=== PATIENT | female | born 2000 | race Caucasian/White ===

== ENCOUNTER 2020-03-29 03:20 | Emergency (ER) | payer MEDICAID ==
--- NOTE | 2020-03-29 03:40 | EDM.PDOC ---
ED HPI GENERAL MEDICAL PROBLEM - General Chief Complaint: Headache Stated Complaint: HEADACHE Time Seen by Provider: 03/29/20 03:40 Source of Information: Reports: Patient, RN, RN Notes Reviewed History Limitations: Reports: No Limitations - History of Present Illness INITIAL COMMENTS - FREE TEXT/NARRATIVE: Patient presents to ER with complaint of headache that began last evening, states it woke her up approximately 1 AM. Patient states the pain wraps from the shoulders up the neck and around the head. States she did try Excedrin and Coca-Cola, which helped minimally. Patient states she has had headaches like this in the past requiring medication. Patient denies any chances of . Onset: Today, Sudden Headache Pain Score (Numeric/FACES): 10 - Related Data Allergies Allergy/AdvReac Type Severity Reaction Status Date / Time cantaloupe Allergy Other Verified 03/29/20 03:29 ed Allergy Other Verified 03/29/20 03:29 Home Meds: Home Meds Albuterol [Proair HFA] 1 puff IH Q4H PRN 03/29/20 [History] Amphetamine/Dextroamphetamine [Adderall] 5 mg PO TID 03/29/20 [History] Aspirin/Acetaminophen/Caffeine [Excedrin Migraine Caplet] 1 each PO ASDIRECTED PRN 03/29/20 [History] Cetirizine [ZyrTEC] 10 mg PO DAILY 03/29/20 [History] Escitalopram Oxalate [Lexapro] 15 mg PO DAILY 03/29/20 [History] Ibuprofen 600 mg PO Q4H PRN 03/29/20 [History] Iron,Carbonyl/Ascorbic Acid [Iron 100-Vitamin C Tablet] 1 each PO DAILY 03/29/20 [History] Levothyroxine 25 mcg PO ACBREAKFAST 03/29/20 [History] Montelukast [Singulair] 10 mg PO DAILY 03/29/20 [History] hydrOXYzine HCL [Hydroxyzine HCl] 25 mg PO Q6H PRN 03/29/20 [History] ED ROS GENERAL - Review of Systems Review Of Systems: Comprehensive ROS is negative, except as noted in HPI. - Physical Exam Exam: See Below Exam Limited By: No Limitations General Appearance: Alert, WD/WN, No Apparent Distress Eye Exam: Bilateral Eye: EOMI, Normal Inspection Ears: Normal External Exam, Hearing Grossly Normal Nose: Normal Inspection Throat/Mouth: Normal Inspection, Normal Voice, No Airway Compromise Head Exam: Atraumatic, Normocephalic Neck: Normal Inspection, Supple, Non-Tender, Full Range of Motion Respiratory/Chest: No Respiratory Distress, Lungs Clear, Normal Breath Sounds, No Accessory Muscle Use, Chest Non-Tender Cardiovascular: Normal Peripheral Pulses, Regular Rate, Rhythm, No Edema, No Gallop, No JVD, No Murmur, No Rub GI/Abdominal: Normal Bowel Sounds, Soft, Non-Tender, No Organomegaly, No Dis tention, No Abnormal Bruit, No Mass (Female) Exam: Deferred Rectal (Female) Exam: Deferred Neuro Exam (Abbreviated): Alert, Oriented, CN II-XII Intact, Normal Cognition, Normal Gait, Normal Reflexes, No Motor/Sensory Deficits Back Exam: Normal Inspection, Full Range of Motion, NT Extremities: Normal Inspection, Normal Range of Motion, Non-Tender, No Pedal Edema, Normal Capillary Refill Psychiatric: Normal Affect, Normal Mood, Anxious Skin Exam: Warm, Dry, Intact, Normal Color, No Rash Course - Vital Signs Last Recorded V/S: Last Vital Signs Temp 97.3 F 03/29/20 03:20 Pulse 121 H 03/29/20 03:20 Resp 18 03/29/20 03:20 BP 110/72 03/29/20 03:20 Pulse Ox 97 03/29/20 03:20 - Orders/Labs/Meds Meds: Medications Discontinued Medications Generic Name Dose Route Start Last Admin Trade Name Freq PRN Reason Stop Dose Admin Ketorolac Tromethamine 30 mg 03/29/20 03:49 03/29/20 04:04 Toradol IM 03/29/20 03:50 30 mg ONETIME ONE Administration Orphenadrine Citrate 60 mg 03/29/20 03:50 03/29/20 04:05 Norflex IM 03/29/20 03:51 60 mg ONETIME ONE Administration Departure - Departure Time of Disposition: 04:20 Disposition: Home, Self-Care 01 Condition: Good Clinical Impression: Tension-type headache - Discharge Information *PRESCRIPTION DRUG MONITORING PROGRAM REVIEWED*: No *COPY OF PRESCRIPTION DRUG MONITORING REPORT IN PATIENT JAE: No Instructions: Tension Headache, Adult, [id number] Referrals: PCP,Unobtain [Primary Care Provider] - Forms: ED Department Discharge Additional Instructions: May use Tylenol and/or ibuprofen as directed for pain Drink plenty of water Rx: Cyclobenzaprine 10 mg 3 times daily as needed muscle spasms Rest in a dark room Follow-up with your primary care provider in the clinic if no improvement Sepsis Event Note (ED) - Evaluation Sepsis Screening Result: No Definite Risk - Focused Exam Vital Signs: Vital Signs Temp Pulse Resp BP Pulse Ox 03/29/20 03:20 97.3 F 121 H 18 110/72 97
[2020-03-29] MEDS ORDERED: Ketorolac 30 MG/ML SDV IM ONE (03:49)
[2020-03-29] MEDS ORDERED: Orphenadrine 60 MG/2 ML Inj IM ONE (03:50)
== END 2020-03-29 04:31 | disposition home or self-care (01) ==
LOC: VM.ED 03:20
DX: G44.209 Tension-type headache, unspecified, not intractable (principal); Z91.018 Allergy to other foods; Z79.82 Long term (current) use of aspirin; Z79.899 Other long term (current) drug therapy
CPT/HCPCS: 96372; 99283; J1885; J2360

== ENCOUNTER 2020-08-25 19:09 | Emergency (ER) | payer OTHER, MEDICAID ==
--- NOTE | 2020-08-25 19:20 | EDM.PDOC ---
ED HPI GENERAL MEDICAL PROBLEM - General Stated Complaint: ER Time Seen by Provider: 08/25/20 19:09 Source of Information: Reports: Patient History Limitations: Reports: No Limitations - History of Present Illness INITIAL COMMENTS - FREE TEXT/NARRATIVE: Pt. states that she fell/twisted her R foot approx. 2 days ago in [place]. Pt. states that she has been experiencing discomfort primarily to the 3rd digit of the R foot since that time, but complains of increased pain with movement of the adjacent toes as well. Denies any high energy trauma. Denies any trauma to the tarsal bones, states that discomfort is isolated to the phalanges. She states that she did have some ecchymosis to the digit, but this is resolving since the accident. Has not attempted icing/antiinflammatories. Denies any ankle trauma. Onset: Today Onset Date: 08/25/20 Location: Reports: Lower Extremity, Right Quality: Reports: Ache Severity: Mild - Related Data Allergies Allergy/AdvReac Type Severity Reaction Status Date / Time cantaloupe Allergy Other Verified 08/25/20 19:32 ed Allergy Other Verified 08/25/20 19:32 Home Meds: Home Meds Albuterol [Proair HFA] 1 puff IH Q4H PRN 03/29/20 [History] Aspirin/Acetaminophen/Caffeine [Excedrin Migraine Caplet] 1 each PO ASDIRECTED PRN 03/29/20 [History] Cetirizine [ZyrTEC] 10 mg PO DAILY 03/29/20 [History] Ibuprofen 600 mg PO Q4H PRN 03/29/20 [History] Iron,Carbonyl/Ascorbic Acid [Iron 100-Vitamin C Tablet] 1 each PO DAILY 03/29/20 [History] Levothyroxine 25 mcg PO ACBREAKFAST 03/29/20 [History] Montelukast [Singulair] 10 mg PO DAILY 03/29/20 [History] hydrOXYzine HCL [Hydroxyzine HCl] 25 mg PO Q6H PRN 03/29/20 [History] DULoxetine [Cymbalta] 60 mg PO DAILY 08/25/20 [History] Pantoprazole [ProTONIX] 40 mg PO DAILY 08/25/20 [History] Past Medical History HEENT History: Reports: Allergic Rhinitis Cardiovascular History: Reports: Other (See Below) Other Cardiovascular History: inappropriate sinus tachycardia Psychiatric History: Reports: ADHD, Anxiety, Depression ED ROS GENERAL - Review of Systems Review Of Systems: Comprehensive ROS is negative, except as noted in HPI. ED EXAM, GENERAL - Physical Exam Exam: See Below General Appearance: Alert, WD/WN, No Apparent Distress Extremities: Other (No obvious deformity to the digits of the R foot. No crepitus noted. Minimal ecchymosis noted to the 3rd digit. No significant edema.) Course - Vital Signs Last Recorded V/S: Last Vital Signs Temp 36.9 C 08/25/20 19:10 Pulse 130 H 08/25/20 19:10 Resp 20 08/25/20 19:10 BP 143/91 H 08/25/20 19:10 Pulse Ox 96 08/25/20 19:10 - Radiology Interpretation Free Text/Narrative:: No fracture or dislocation noted on radiographs. Departure - Departure Time of Disposition: 20:15 Disposition: Home, Self-Care 01 Clinical Impression: Sprain of toe, third, right - Discharge Information Forms: ED Department Discharge Additional Instructions: Home to rest. Ice foot for 10-15 min every hour or so. Ibuprofen 200mg 3 tabs every 6 hours as needed for pain Sepsis Event Note (ED) - Focused Exam Vital Signs: Vital Signs Temp Pulse Resp BP Pulse Ox 08/25/20 19:10 36.9 C 130 H 20 143/91 H 96 - Assessment/Plan Plan: Advised icing the toes/foot. No fracture was appreciated radiographically. Ibuprofen 200mg 3 tabs every 6 hours as needed for discomfort. Recheck in clinic in 10-14 days, sooner if not gradually improving.
--- NOTE | 2020-08-25 19:43 | CR ---
[id number] RAD/RAD Toes Right EXAM: RAD Toes Right INDICATION: FELL 2 DAYS AGO/ PAIN TO THE 3RD TOE COMPARISON: None. DISCUSSION: Mild metatarsus primus varus and hallux valgus. No acute fracture or dislocation is identified. Mild soft tissue swelling in the dorsum of the foot. IMPRESSION: 1. Negative for acute fracture. Jan Burns MD 08/25/[id number] Thank you for allowing us to participate in the care of your patient.
== END 2020-08-25 19:53 | disposition home or self-care (01) ==
LOC: VM.ED 19:09
DX: S93.504A Unspecified sprain of right lesser toe(s), initial encounter (principal); F32.9 Major depressive disorder, single episode, unspecified; Z91.013 Allergy to seafood; Z79.899 Other long term (current) drug therapy; X50.1XXA Overexertion from prolonged static or awkward postures, initial encounter
CPT/HCPCS: 73660-RT; 99283; 99283-25

== ENCOUNTER 2020-09-29 23:05 | Emergency (ER) | payer MEDICAID, OTHER ==
[2020-09-29] MEDS ORDERED: Lactated Ringers 1,000 ML IV ONE (23:34)
[2020-09-29] MEDS ORDERED: Ondansetron 4 MG/2 ML SDV IVPUSH ONE (23:34)
[2020-09-29] MEDS ORDERED: Sodium Chloride 0.9% 10 ML Syringe FLUSH PRN (23:34)
--- NOTE | 2020-09-29 23:40 | EDM.PDOC ---
ED HPI GENERAL MEDICAL PROBLEM - General Chief Complaint: Gastrointestinal Problem Stated Complaint: Vomiting Time Seen by Provider: 09/29/20 23:28 Source of Information: Reports: Patient - History of Present Illness INITIAL COMMENTS - FREE TEXT/NARRATIVE: Meagan is a 20 y/o female who comes to the ER with complaints of nausea and vomiting. She reports that she has not felt all that well this whole week and has been more tired and nauseated on and off all week. She reports having a vomiting episode a week ago and then tonight she started to vomit about 8 pm. She did eat supper without any problems. No fevers. Has been able to take her medications and keep them down. Also has had multiple diarrhea stools this week and today feels more constipated. She did call her PCP in [place] a few days ago, but she has not been seen. "all over" Pain Score (Numeric/FACES): 7 - Related Data Allergies Allergy/AdvReac Type Severity Reaction Status Date / Time cantaloupe Allergy Other Verified 09/29/20 23:35 ed Allergy Other Verified 09/29/20 23:35 Home Meds: Home Meds Albuterol [Proair HFA] 1 puff IH Q4H PRN 03/29/20 [History] Aspirin/Acetaminophen/Caffeine [Excedrin Migraine Caplet] 1 each PO ASDIRECTED PRN 03/29/20 [History] Cetirizine [ZyrTEC] 10 mg PO DAILY 03/29/20 [History] Ibuprofen 600 mg PO Q4H PRN 03/29/20 [History] Iron,Carbonyl/Ascorbic Acid [Iron 100-Vitamin C Tablet] 1 each PO DAILY 03/29/20 [History] Levothyroxine 25 mcg PO ACBREAKFAST 03/29/20 [History] Montelukast [Singulair] 10 mg PO DAILY 03/29/20 [History] hydrOXYzine HCL [Hydroxyzine HCl] 25 mg PO Q6H PRN 03/29/20 [History] DULoxetine [Cymbalta] 60 mg PO DAILY 08/25/20 [History] Pantoprazole [ProTONIX] 40 mg PO DAILY 08/25/20 [History] Ondansetron [Ondansetron ODT] 4 mg PO Q6H PRN #15 tab.rapdis 09/30/20 [Rx] Past Medical History HEENT History: Reports: Allergic Rhinitis Cardiovascular History: Reports: Other (See Below) Other Cardiovascular History: inappropriate sinus tachycardia Respiratory History: Reports: Asthma Psychiatric History: Reports: ADHD, Anxiety, Depression Review of Systems - Review of Systems Review Of Systems: See Below Constitutional: Reports: No Symptoms Eyes: Reports: No Symptoms Ears: Reports: No Symptoms Nose: Reports: No Symptoms Mouth/Throat: Reports: No Symptoms Respiratory: Reports: No Symptoms Cardiovascular: Reports: No Symptoms GI/Abdominal: Reports: Diarrhea, Nausea, Vomiting Genitourinary: Reports: No Symptoms Musculoskeletal: Reports: No Symptoms Skin: Reports: No Symptoms Neurological: Reports: No Symptoms Psychiatric: Reports: No Symptoms ED EXAM, GENERAL - Physical Exam Exam: See Below General Appearance: Alert, WD/WN, No Apparent Distress (Adult female.) Eye Exam: Bilateral Eye: PERRL Ears: Normal External Exam, Normal Canal, Hearing Grossly Normal, Normal TMs Nose: Normal Inspection, Normal Mucosa Throat/Mouth: Normal Inspection, Normal Lips, Normal Teeth, Normal Voice Head: Atraumatic, Normocephalic Neck: Normal Inspection, Supple Respiratory/Chest: No Respiratory Distress, Lungs Clear, Chest Non-Tender Cardiovascular: Normal Peripheral Pulses, Regular Rate, Rhythm, No Murmur GI/Abdominal: Normal Bowel Sounds, Soft, Non-Tender, No Organomegaly (Female) Exam: Deferred Rectal (Female) Exam: Deferred Back Exam: Normal Inspection Extremities: Normal Inspection, Normal Range of Motion, Normal Capillary Refill Neurological: Alert, Oriented, CN II-XII Intact, Normal Cognition, Normal Gait, No Motor/Sensory Deficits Psychiatric: Normal Affect, Normal Mood Skin Exam: Warm, Dry, Intact, Normal Color Lymphatic: No Adenopathy Course - Vital Signs Text/Narrative:: [id number] The patient was seen by the [facility] DEVELOPER. Labs ordered. She was given a ltier of LR and Zofran 4 mg IVP. 0035 Labs reviewed. CBC WBC=16.6, diff neg. CMP, Lipase, Amylase. Reviewed labs with patient. She reports feeling better now. [facility] [employer] DEVELOPER discussed option of obtaining an CT of Abd/Pelvis since WBC is elevated and she has been sick on and off all week or going home with oral Zofran and monitoring sx. Patient chooses to go home with Zofran and see if her sx continue. She was given written instructions and left the ER in stable condition. Last Recorded V/S: Last Vital Signs Temp 36.6 C 09/29/20 23:05 Pulse 100 09/29/20 23:05 Resp 16 09/29/20 23:05 BP 114/80 09/29/20 23:05 Pulse Ox 95 09/29/20 23:05 - Orders/Labs/Meds Orders: Active Orders 24 hr Category Date Time Status CULTURE URINE [RM] Stat Lab 09/29/20 23:45 Received Sodium Chloride 0.9% [Saline Flush] Med 09/29/20 23:34 Active 10 ml FLUSH ASDIRECTED PRN Saline Lock Insert [OM.PC] Stat Oth 09/29/20 23:34 Ordered Medication Orders Sodium Chloride (Saline Flush) 10 ml FLUSH ASDIRECTED PRN PRN Reason: Keep Vein Open Labs: Laboratory Tests 09/29/20 09/29/20 09/29/20 Range/Units 23:45 23:45 23:52 WBC 16.6 H (4.0-10.0) x10^3/uL RBC 5.03 (4.00-5.50) x10^6/uL Hgb 15.4 (12.0-16.0) g/dL Hct 45.2 (33.0-47.0) % MCV 89.9 (78.0-93.0) fL MCH 30.6 (26.0-32.0) pg MCHC 34.1 (32.0-36.0) g/dL RDW Coeff of Arslan 12.4 (10.0-15.0) % Plt Count 278 (130-400) x10^3/uL Neut % (Auto) 79.0 (50.0-80.0) % Lymph % (Auto) 11.6 L (25.0-50.0) % Wake % (Auto) 8.3 (2.0-11.0) % Eos % (Auto) 1.0 (0.0-4.0) % Baso % (Auto) 0.1 L (0.2-1.2) % Sodium (136-145) mmol/L Potassium (3.5-5.1) mmol/L Chloride (98-107) mmol/L Carbon Dioxide (21-32) mmol/L Anion Gap (5-15) mmol/L BUN (7-18) mg/dL Creatinine (0.55-1.02) mg/dL Est Cr Clr Drug Dosing mL/min Estimated GFR (MDRD) Glucose (74-106) mg/dL Calcium (8.5-10.1) mg/dL Corrected Calcium (8.5-10.1) mg/dL Magnesium (1.8-2.4) mg/dL Total Bilirubin (0.2-1.0) mg/dL AST (15-37) U/L ALT (14-59) U/L Alkaline Phosphatase (46-116) U/L C-Reactive Protein (<=0.9) mg/dL Total Protein (6.4-8.2) g/dL Albumin (3.4-5.0) g/dL Globulin Albumin/Globulin Ratio Amylase (25-115) U/L Lipase (73-393) U/L Urine Color Yellow (YELLOW) Urine Appearance Clear (CLEAR) Urine pH 6.0 (5.0-8.0) Ur Specific Holcomb 1.025 Urine Protein Trace H (NEGATIVE) mg/dL Urine Glucose (UA) Negative (NEGATIVE) mg/dL Urine Ketones 40 H (NEGATIVE) mg/dL Urine Occult Blood Negative (NEGATIVE) Urine Nitrite Negative (NEGATIVE) Urine Bilirubin Small H (NEGATIVE) Urine Urobilinogen 1.0 (0.2) EU/dL Ur Leukocyte Esterase Trace H (NEGATIVE) U Hyaline Cast (Auto) Rare Urine RBC 0-5 (NOT SEEN) /HPF Urine WBC 0-5 (NOT SEEN) /HPF Ur Squamous Epith Cells Few H (NEGATIVE) /HPF Ur Renal Epithelial Cell Rare H (NEGATIVE) /HPF Urine Bacteria Rare (NEGATIVE) /HPF Urine Mucus Many H (NEGATIVE) /LPF Urine HCG, Qual Negative (NEGATIVE) 09/29/20 Range/Units 23:52 WBC (4.0-10.0) x10^3/uL RBC (4.00-5.50) x10^6/uL Hgb (12.0-16.0) g/dL Hct (33.0-47.0) % MCV (78.0-93.0) fL MCH (26.0-32.0) pg MCHC (32.0-36.0) g/dL RDW Coeff of Arslan (10.0-15.0) % Plt Count (130-400) x10^3/uL Neut % (Auto) (50.0-80.0) % Lymph % (Auto) (25.0-50.0) % Wake % (Auto) (2.0-11.0) % Eos % (Auto) (0.0-4.0) % Baso % (Auto) (0.2-1.2) % Sodium 142 (136-145) mmol/L Potassium 3.6 (3.5-5.1) mmol/L Chloride 104 (98-107) mmol/L Carbon Dioxide 25 (21-32) mmol/L Anion Gap 16.6 H (5-15) mmol/L BUN 6 L (7-18) mg/dL Creatinine 0.8 (0.55-1.02) mg/dL Est Cr Clr Drug Dosing 105.01 mL/min Estimated GFR (MDRD) > 60 Glucose 105 (74-106) mg/dL Calcium 9.0 (8.5-10.1) mg/dL Corrected Calcium 9.24 (8.5-10.1) mg/dL Magnesium 1.8 (1.8-2.4) mg/dL Total Bilirubin 0.4 (0.2-1.0) mg/dL AST 11 L (15-37) U/L ALT 15 (14-59) U/L Alkaline Phosphatase 112 (46-116) U/L C-Reactive Protein 0.4 (<=0.9) mg/dL Total Protein 7.7 (6.4-8.2) g/dL Albumin 3.7 (3.4-5.0) g/dL Globulin 4.0 Albumin/Globulin Ratio 0.93 Amylase 31 (25-115) U/L Lipase 70 L (73-393) U/L Urine Color (YELLOW) Urine Appearance (CLEAR) Urine pH (5.0-8.0) Ur Specific Holcomb Urine Protein (NEGATIVE) mg/dL Urine Glucose (UA) (NEGATIVE) mg/dL Urine Ketones (NEGATIVE) mg/dL Urine Occult Blood (NEGATIVE) Urine Nitrite (NEGATIVE) Urine Bilirubin (NEGATIVE) Urine Urobilinogen (0.2) EU/dL Ur Leukocyte Esterase (NEGATIVE) U Hyaline Cast (Auto) Urine RBC (NOT SEEN) /HPF Urine WBC (NOT SEEN) /HPF Ur Squamous Epith Cells (NEGATIVE) /HPF Ur Renal Epithelial Cell (NEGATIVE) /HPF Urine Bacteria (NEGATIVE) /HPF Urine Mucus (NEGATIVE) /LPF Urine HCG, Qual (NEGATIVE) Meds: Medications Generic Name Dose Route Start Last Admin Trade Name Edda PRN Reason Stop Dose Admin Sodium Chloride 10 ml 09/29/20 23:34 Saline Flush FLUSH ASDIRECTED PRN Keep Vein Open Discontinued Medications Generic Name Dose Route Start Last Admin Trade Name Edda PRN Reason Stop Dose Admin Lactated Ringer's 1,000 mls @ 999 mls/hr 09/29/20 23:34 09/29/20 23:52 Ringers, Lactated IV 09/30/20 00:34 999 mls/hr ONETIME ONE Administration Ondansetron HCl 4 mg 09/29/20 23:34 09/29/20 23:54 Zofran IVPUSH 09/29/20 23:35 4 mg ONETIME ONE Administration Departure - Departure Time of Disposition: 00:39 Disposition: Home, Self-Care 01 Condition: Good Clinical Impression: Nausea & vomiting Qualifiers: Vomiting type: unspecified Vomiting Intractability: non-intractable Qualified Code(s): R11.2 - Nausea with vomiting, unspecified - Discharge Information Prescriptions: Ondansetron [Ondansetron ODT] 4 mg PO Q6H PRN #15 tab.rapdis PRN Reason: Nausea Instructions: Nausea and Vomiting, Adult Forms: ED Department Discharge Additional Instructions: -Zofran 4mg oral every 4-6 hours as needed for nausea #2 tabs (ER) #15(Rx) -Rest -Stay well hydrated -Drink clear liquids and advance your diet as you tolerate -Return to the clinic to see your PCP if your symptoms persist or follow up back in the ER if symptoms as needed Sepsis Event Note (ED) - Focused Exam Vital Signs: Vital Signs Temp Pulse Resp BP Pulse Ox 09/29/20 23:05 36.6 C 100 16 114/80 95 - My Orders Last 24 Hours: My Active Orders 09/29/20 23:34 Sodium Chloride 0.9% [Saline Flush] 10 ml FLUSH ASDIRECTED PRN Saline Lock Insert [OM.PC] Stat 09/29/20 23:45 CULTURE URINE [RM] Stat - Assessment/Plan Last 24 Hours: My Active Orders 09/29/20 23:34 Sodium Chloride 0.9% [Saline Flush] 10 ml FLUSH ASDIRECTED PRN Saline Lock Insert [OM.PC] Stat 09/29/20 23:45 CULTURE URINE [RM] Stat
[2020-09-30 00:24] LABS: CHLORIDE,CL 104 mmol/L (98-107); SODIUM,NA 142 mmol/L (136-145)
[2020-09-30 00:26] LABS: ANION GAP 16.6 mmol/L (5-15)
[2020-09-30] MEDS ORDERED: Take Home: Ondansetron 4 MG Tab.DIS, 2 Tab Pack PO ONE (00:39)
== END 2020-09-30 00:55 | disposition home or self-care (01) ==
LOC: VM.ED 23:05
DX: R11.2 Nausea with vomiting, unspecified (principal); J45.909 Unspecified asthma, uncomplicated; Z91.018 Allergy to other foods; Z79.899 Other long term (current) drug therapy
CPT/HCPCS: 80053; 81001; 81025; 82150; 83690; 83735; 85025; 86140; 87086; 96374; 99284; 99284-25; A9270-GY; J2405; J7120

== ENCOUNTER 2021-04-02 18:46 | Emergency (ER) | payer MEDICAID ==
--- NOTE | 2021-04-02 19:33 | EDM.PDOC ---
ED HPI GENERAL MEDICAL PROBLEM - General Chief Complaint: Headache Stated Complaint: HIT HEAD A WEEK AGO AND DOESN'T FEEL WELL STILL Time Seen by Provider: 04/02/21 19:15 Source of Information: Reports: Patient, Family History Limitations: Reports: No Limitations - History of Present Illness INITIAL COMMENTS - FREE TEXT/NARRATIVE: Patient presents with head fullness since yesterday, cough and feeling fatigued. She states that she hit her head on a wood beam in the frontal part of her head about a week ago. No headaches, no wound. Not on a blood thinner. had a headache yesterday but today awoke with head fullness. Cough for a few days. Told her mom about the injury and they presented with concern for intracranial problems . States she has a history of thyroid problems, on medication and extensive history of tachycardia without cause, on medication for it. Had her covid vaccine but only been about 3 weeks since last vaccination Associated Symptoms: Reports: Headaches, Malaise. Denies: Seizure Left Headache Pain Score (Numeric/FACES): 1 - Related Data Allergies Allergy/AdvReac Type Severity Reaction Status Date / Time cantaloupe Allergy Other Verified 04/02/21 19:21 ed Allergy Other Verified 04/02/21 19:21 Home Meds: Home Meds Albuterol [Proair HFA] 1 puff IH Q4H PRN 03/29/20 [History] Aspirin/Acetaminophen/Caffeine [Excedrin Migraine Caplet] 1 each PO ASDIRECTED PRN 03/29/20 [History] Cetirizine [ZyrTEC] 10 mg PO DAILY 03/29/20 [History] Ibuprofen 600 mg PO Q4H PRN 03/29/20 [History] Iron,Carbonyl/Ascorbic Acid [Iron 100-Vitamin C Tablet] 1 each PO DAILY 03/29/20 [History] Levothyroxine 25 mcg PO ACBREAKFAST 03/29/20 [History] Montelukast [Singulair] 10 mg PO DAILY 03/29/20 [History] hydrOXYzine HCL [Hydroxyzine HCl] 25 mg PO Q6H PRN 03/29/20 [History] DULoxetine [Cymbalta] 60 mg PO DAILY 08/25/20 [History] Pantoprazole [ProTONIX] 40 mg PO DAILY 08/25/20 [History] Ondansetron [Ondansetron ODT] 4 mg PO Q6H PRN #15 tab.sophie 09/30/20 [Rx] Past Medical History HEENT History: Reports: Allergic Rhinitis Cardiovascular History: Reports: Other (See Below) Other Cardiovascular History: inappropriate sinus tachycardia Respiratory History: Reports: Asthma Musculoskeletal History: Reports: Fibromyalgia Psychiatric History: Reports: ADHD, Anxiety, Depression Endocrine/Metabolic History: Reports: Hypothyroidism Social & Family History - Tobacco Use Tobacco Use Status *Q: Never Tobacco User - Alcohol Use Alcohol Use History: No - Recreational Drug Use Recreational Drug Use: No Drug Use in Last 12 Months: No ED ROS GENERAL - Review of Systems Review Of Systems: See Below Constitutional: Reports: Malaise, Weakness, Fatigue. Denies: Night Sweats, Diaphoresis HEENT: Reports: Other (sinus congestion) Respiratory: Reports: Cough. Denies: Shortness of Breath Cardiovascular: Denies: Chest Pain, Dyspnea on Exertion Endocrine: Reports: No Symptoms GI/Abdominal: Reports: No Symptoms. Denies: Diarrhea, Nausea, Vomiting : Reports: No Symptoms Musculoskeletal: Reports: No Symptoms Skin: Reports: No Symptoms Neurological: Reports: Headache - Physical Exam Exam: See Below Exam Limited By: No Limitations General Appearance: Alert, WD/WN, No Apparent Distress Eye Exam: Bilateral Eye: EOMI, Normal Inspection, Nystagmus, PERRL Ears: Normal External Exam, Normal Canal, Normal TMs Nose: Normal Inspection, Normal Mucosa, No Blood. No: Nasal Swelling Throat/Mouth: Normal Inspection, Normal Lips, Normal Teeth, Normal Voice Head Exam: Atraumatic, Normocephalic Neck: Normal Inspection, Supple, Non-Tender Respiratory/Chest: No Respiratory Distress, Lungs Clear, Normal Breath Sounds, No Accessory Muscle Use, Chest Non-Tender Cardiovascular: No Edema, No Murmur, No Rub, Tachycardia GI/Abdominal: Normal Bowel Sounds, Soft Neuro Exam (Abbreviated): Alert, Oriented, CN II-XII Intact, Normal Cognition, Normal Gait (normal finger to nose with eyes closed, negative rhomberg and pronator drift, normal strength in the upper and lower extermities, normal toe and heel walking), No Motor/Sensory Deficits Extremities: Normal Inspection, Normal Range of Motion, Non-Tender, No Pedal Edema, Normal Capillary Refill Psychiatric: Normal Affect, Normal Mood Skin Exam: Warm, Dry, Intact Course - Vital Signs Last Recorded V/S: Last Vital Signs Temp 36.9 C 04/02/21 18:50 Pulse 112 H 04/02/21 18:50 Resp 16 04/02/21 18:50 BP 119/71 04/02/21 18:50 Pulse Ox 96 04/02/21 18:50 - Orders/Labs/Meds Labs: Laboratory Tests 04/02/21 Range/Units 19:40 SARS CoV-2 RNA Rapid CORY Negative (NEGATIVE) - Radiology Interpretation Free Text/Narrative:: head ct is normal, no acute.. interpreted by radiology - Re-Assessments/Exams Free Text/Narrative Re-Assessment/Exam: 04/02/21 19:46 will check a rapid covid due to general illness and pandemic. head ct due to parental concern. normal neuro exam with exception of nystagmus. one week out of head injury. patient has well established tachycardia and under cardiology care for this. 04/02/21 20:16 advised probable viral illness, conservative care, follow up with PCP Departure - Departure Time of Disposition: 20:16 Disposition: Home, Self-Care 01 Clinical Impression: Head congestion, Head injury - Discharge Information *PRESCRIPTION DRUG MONITORING PROGRAM REVIEWED*: Not Applicable *COPY OF PRESCRIPTION DRUG MONITORING REPORT IN PATIENT JAE: Not Applicable Instructions: Head Injury, Adult, [id number], Sinus Headache, [id number] Forms: ED Department Discharge Additional Instructions: consider using a decongestant such as Coricidin to help with the congestion without causing heart rate or blood pressure issues. You can over an over the counter nasal spray like flonase or nasocort to help with congestion. If you continue to be ill, stay home. Follow up with your provider later in the week if not improving. Process is likely viral and can have cough/cold symptoms for up to 7-10 days. Wear a mask . Head CT was negative as was your covid 19 test Sepsis Event Note (ED) - Evaluation Sepsis Screening Result: No Definite Risk - Focused Exam Vital Signs: Vital Signs Temp Pulse Resp BP Pulse Ox 04/02/21 18:50 36.9 C 112 H 16 119/71 96
--- NOTE | 2021-04-02 20:01 | CT ---
[id number] CT/CT Head WO IV EXAM: CT Head WO IV CLINICAL DATA: HEAD TRAUMA COMPARISON STUDY: None FINDINGS: No intracranial hemorrhage, extra-axial fluid collection, mass, or acute ischemia. No hydrocephalus. Calvarium intact. Paranasal sinuses and mastoid air cells are clear. IMPRESSION: Normal examination of the brain. Josué Hong MD 04/02/211999 Thank you for allowing us to participate in the care of your patient.
[2021-04-02] MEDS ORDERED: Proparacaine 0.5% Ophth Soln 15 ML Bottle EYELF PRN (20:31)
[2021-04-02] MEDS ORDERED: Fluorescein 1 MG Ophth Strip EYELF ONE (20:31)
== END 2021-04-02 20:20 | disposition home or self-care (01) ==
LOC: VM.ED 18:46
DX: S09.90XA Unspecified injury of head, initial encounter (principal); J34.89 Other specified disorders of nose and nasal sinuses; E03.9 Hypothyroidism, unspecified; Z79.899 Other long term (current) drug therapy; Z91.018 Allergy to other foods; Z79.82 Long term (current) use of aspirin; Z20.822 Contact with and (suspected) exposure to COVID-19; W22.8XXA Striking against or struck by other objects, initial encounter
CPT/HCPCS: 70450; 99284; 99284-25; U0002

== ENCOUNTER 2021-04-22 11:38 | Emergency (ER) | payer MEDICAID ==
--- NOTE | 2021-04-22 12:48 | EDM.PDOC ---
ED HPI GENERAL MEDICAL PROBLEM - General Chief Complaint: General Stated Complaint: RIB PAIN Time Seen by Provider: 04/22/21 12:35 - History of Present Illness INITIAL COMMENTS - FREE TEXT/NARRATIVE: Patient comes to the emergency department today with complaints of left rib pain. This patient for the past 3 to 4 days has had intermittent sharp shooting stabbing left rib pain as well as mid sternal pain that gets worse with deep breath cough movement or palpation. She has had no recent falls trauma or injury. She does have a history of chronic pain syndrome. She has seen the chiropractor the last couple of days and he told her that she has a rib "out of place". She had some adjustment there but her pain did not improve. She took 1 dose of ibuprofen yesterday with no improvement. She has been taking her other medications normally. It is difficult to complete the rest of her review of systems as no matter what question I asked her she answers as a positive. She has shortness of breath cough congestion fever chills headache weakness dizziness lightheadedness neck pain abdominal pain nausea vomiting pelvic pain left arm pain right arm pain left leg pain right leg pain. Her right ear tingles when she is laying on her left side. Her right knee is achy when the wind blows. I believe there is some aspects of histrionic somatization with her review of systems. It is somewhat difficult to evaluate. She also has a history of an hydrocyst chronic pain syndrome major depressive disorder attention deficit hyperactivity disorder anxiety. Left Lower Thoracic Pain Score (Numeric/FACES): 8 - Related Data Allergies Allergy/AdvReac Type Severity Reaction Status Date / Time cantaloupe Allergy Other Verified 04/22/21 11:54 ed Allergy Other Verified 04/22/21 11:54 Home Meds: Home Meds Albuterol [Proair HFA] 1 puff IH Q4H PRN 03/29/20 [History] Aspirin/Acetaminophen/Caffeine [Excedrin Migraine Caplet] 1 each PO ASDIRECTED PRN 03/29/20 [History] Cetirizine [ZyrTEC] 10 mg PO DAILY 03/29/20 [History] Ibuprofen 600 mg PO Q4H PRN 03/29/20 [History] Iron,Carbonyl/Ascorbic Acid [Iron 100-Vitamin C Tablet] 1 each PO DAILY 03/29/20 [History] Levothyroxine 25 mcg PO ACBREAKFAST 03/29/20 [History] Montelukast [Singulair] 10 mg PO DAILY 03/29/20 [History] hydrOXYzine HCL [Hydroxyzine HCl] 25 mg PO Q6H PRN 03/29/20 [History] DULoxetine [Cymbalta] 60 mg PO DAILY 08/25/20 [History] Pantoprazole [ProTONIX] 40 mg PO DAILY 08/25/20 [History] Ondansetron [Ondansetron ODT] 4 mg PO Q6H PRN #15 tab.rapdis 09/30/20 [Rx] Cyclobenzaprine [Flexeril] 10 mg PO TID PRN #12 tab 04/22/21 [Rx] Past Medical History HEENT History: Reports: Allergic Rhinitis Cardiovascular History: Reports: Other (See Below) Other Cardiovascular History: inappropriate sinus tachycardia Respiratory History: Reports: Asthma Musculoskeletal History: Reports: Fibromyalgia Psychiatric History: Reports: ADHD, Anxiety, Depression Endocrine/Metabolic History: Reports: Hypothyroidism Social & Family History - Tobacco Use Tobacco Use Status *Q: Never Tobacco User ED ROS GENERAL - Review of Systems Review Of Systems: Comprehensive ROS is negative, except as noted in HPI. ED EXAM, GENERAL - Physical Exam Exam: See Below Free Text/Narrative:: It is somewhat difficult to evaluate this patient by physical exam because no matter where I touch her with even the slightest palpation on the skin she complains of severe pain. I can even elicit severe tenderness on her back when I am not touching her back. The patient is clearly in no distress. Not ill or toxic appearing laughing joking with her mother and playing on her phone. Exam Limited By: No Limitations General Appearance: Alert, WD/WN, No Apparent Distress Eye Exam: Bilateral Eye: EOMI Ears: Normal External Exam Nose: Normal Inspection, Nasal Swelling Throat/Mouth: Normal Inspection, Normal Lips Head: Atraumatic, Normocephalic Neck: Normal Inspection, Supple, Non-Tender, Full Range of Motion Respiratory/Chest: No Respiratory Distress, Lungs Clear, Normal Breath Sounds, No Accessory Muscle Use, Other (Again at her sites of complaint on the left lower costal margin in the mid sternum she has severe pain with even the lightest touch. There is no sign of rash lesions sores bruising swelling ecchymosis. No overt bony deformity or crepitus.) Cardiovascular: Normal Peripheral Pulses, Regular Rate, Rhythm Peripheral Pulses: 2+: Radial (L), Radial (R), Posterior Tibial (L), Posterior Tibial (R), Dorsalis Pedis (L), Dorsalis Pedis (R) GI/Abdominal: Normal Bowel Sounds, Soft, No Distention (Female) Exam: Deferred Rectal (Female) Exam: Deferred Back Exam: Normal Inspection, Full Range of Motion Extremities: Normal Inspection, Normal Range of Motion, No Pedal Edema, Normal Capillary Refill Neurological: Alert, Oriented, Normal Cognition, Normal Gait, No Motor/Sensory Deficits Psychiatric: Normal Affect, Normal Mood Skin Exam: Warm, Dry, Intact, Normal Color, No Rash Course - Vital Signs Last Recorded V/S: Last Vital Signs Temp 97.7 F 04/22/21 11:44 Pulse 107 H 04/22/21 11:44 Resp 18 04/22/21 11:44 BP 139/72 04/22/21 11:44 Pulse Ox 96 04/22/21 11:44 - Orders/Labs/Meds Meds: Medications Discontinued Medications Generic Name Dose Route Start Last Admin Trade Name Edda PRN Reason Stop Dose Admin Cyclobenzaprine HCl 1 packet 04/22/21 12:45 04/22/21 13:00 Take Home: Cyclobenzaprine 10 Mg Tab, 4 Tab Pack PO 04/22/21 12:46 1 packet ONETIME ONE Administration Ketorolac Tromethamine 30 mg 04/22/21 12:44 04/22/21 12:58 Ketorolac 30 Mg/Ml Sdv IM 04/22/21 12:45 30 mg ONETIME ONE Administration Orphenadrine Citrate 60 mg 04/22/21 12:44 04/22/21 12:56 Orphenadrine 60 Mg/2 Ml Inj IM 04/22/21 12:45 60 mg NOW STA Administration - Re-Assessments/Exams Free Text/Narrative Re-Assessment/Exam: 04/22/21 16:17 It is somewhat difficult to evaluate this patient as she has a positive review of systems and she has pretty much a positive physical exam although I wonder how much of this has histrionic psychosomatization overlay on it. I do not find any acute urgent or emergent concerns at this time. She does have a history of chronic pain syndrome. I do not feel that there is any need for diagnostic criteria such as x-rays as she has had no recent falls trauma or injury and there is no signs of trauma. She is quite histrionic. We will treat her with some Flexeril to see if this helps at that time. She needs to follow-up with her primary care for chronic conditions. Discharge directions as below are explained to the patient she was comfortable with this plan and her questions are answered. Departure - Departure Time of Disposition: 12:46 Disposition: Home, Self-Care 01 Clinical Impression: Chronic pain syndrome, Musculoskeletal chest pain - Discharge Information Prescriptions: Cyclobenzaprine [Flexeril] 10 mg PO TID PRN #12 tab PRN Reason: Pain Instructions: Chest Wall Pain, [id number] Referrals: PCP,None [Primary Care Provider] - Forms: ED Department Discharge Additional Instructions: Continue with Tylenol and or Ibuprofen as needed for pain. Heat or ice to the area which ever works best for you. Flexeril 1 tablet three times a day as needed for pain. Caution sedation. Take home pack given to the patient and RX sent to [facility] in [place]. Return to the ED if new or worsening symptoms. Follow up with PCP in the next week for recheck. Sepsis Event Note (ED) - Focused Exam Vital Signs: Vital Signs Temp Pulse Resp BP Pulse Ox 04/22/21 11:44 97.7 F 107 H 18 139/72 96
[2021-04-22] MEDS: Orphenadrine 60 MG/2 ML Inj IM STA (12:56)
[2021-04-22] MEDS: Ketorolac 30 MG/ML SDV IM ONE (12:58)
[2021-04-22] MEDS: Take Home: Cyclobenzaprine 10 MG Tab, 4 Tab Pack PO ONE (13:00)
== END 2021-04-22 13:15 | disposition home or self-care (01) ==
LOC: VM.ED 11:38
DX: G89.4 Chronic pain syndrome (principal); R07.89 Other chest pain; J45.909 Unspecified asthma, uncomplicated; E03.9 Hypothyroidism, unspecified; Z91.018 Allergy to other foods; Z79.82 Long term (current) use of aspirin; Z79.899 Other long term (current) drug therapy
CPT/HCPCS: 96372; 99283; A9270-GY; J1885; J2360

== ENCOUNTER 2021-08-07 21:41 | Emergency (ER) | payer MEDICAID ==
[2021-08-07] MEDS ORDERED: Ondansetron 4 MG/2 ML SDV IVPUSH ONE (21:55)
[2021-08-07] MEDS ORDERED: Ketorolac 30 MG/ML SDV IVPUSH ONE (21:55)
--- NOTE | 2021-08-07 22:01 | EDM.PDOC ---
ED HPI GENERAL MEDICAL PROBLEM - General Chief Complaint: Abdominal Pain Stated Complaint: SEVERE LEFT ABDOMINAL PAIN Time Seen by Provider: 08/07/21 21:50 Source of Information: Reports: Patient, Family History Limitations: Reports: No Limitations - History of Present Illness INITIAL COMMENTS - FREE TEXT/NARRATIVE: Patient states she got up about 7:00 tonight at about 8:00 started having a sharp stabbing pain in her left lower pelvic area with radiation up into the left epigastric area. That she describes as about a 10 out of 10 and constant. She denies any pain like this in the past. She had a vaginal ultrasound last and has an upcoming referral appointment to [facility] secondary to abnormal vaginal bleeding with her periods. Patient states her last menstrual period was 28 July and was heavy. Patient denies any sexual activity no vaginal bleeding or discharge. She states she has been eating and drinking fine with no issues and felt fine this morning when she went to bed. She has no other complaints at this time She did have a bowel movement this morning denies any dysuria or anorexia Onset: Sudden Duration: Hour(s): Quality: Reports: Stabbing, Throbbing Severity: Severe Improves with: Reports: None Worsens with: Reports: None Associated Symptoms: Reports: No Other Symptoms. Denies: Headaches, Loss of Appetite, Nausea/Vomiting, Shortness of Breath Uterine Pain Score (Numeric/FACES): 9 - Related Data Allergies Allergy/AdvReac Type Severity Reaction Status Date / Time cantaloupe Allergy Other Verified 04/22/21 11:54 ed Allergy Other Verified 04/22/21 11:54 Home Meds: Home Meds Albuterol [Proair HFA] 1 puff IH Q4H PRN 03/29/20 [History] Aspirin/Acetaminophen/Caffeine [Excedrin Migraine Caplet] 1 each PO ASDIRECTED PRN 03/29/20 [History] Cetirizine [ZyrTEC] 10 mg PO DAILY 03/29/20 [History] Ibuprofen 600 mg PO Q4H PRN 03/29/20 [History] Iron,Carbonyl/Ascorbic Acid [Iron 100-Vitamin C Tablet] 1 each PO DAILY 03/29/20 [History] Levothyroxine 25 mcg PO ACBREAKFAST 03/29/20 [History] Montelukast [Singulair] 10 mg PO DAILY 03/29/20 [History] hydrOXYzine HCL [Hydroxyzine HCl] 25 mg PO Q6H PRN 03/29/20 [History] DULoxetine [Cymbalta] 60 mg PO DAILY 08/25/20 [History] Pantoprazole [ProTONIX] 40 mg PO DAILY 08/25/20 [History] Ondansetron [Ondansetron ODT] 4 mg PO Q6H PRN #15 tab.rapdis 09/30/20 [Rx] Cyclobenzaprine [Flexeril] 10 mg PO TID PRN #12 tab 04/22/21 [Rx] Past Medical History HEENT History: Reports: Allergic Rhinitis Cardiovascular History: Reports: Other (See Below) Other Cardiovascular History: inappropriate sinus tachycardia Respiratory History: Reports: Asthma Musculoskeletal History: Reports: Fibromyalgia Psychiatric History: Reports: ADHD, Anxiety, Depression Endocrine/Metabolic History: Reports: Hypothyroidism ED ROS GENERAL - Review of Systems Review Of Systems: See Below Constitutional: Reports: No Symptoms. Denies: Fever, Chills, Malaise, Weakness HEENT: Reports: No Symptoms Respiratory: Reports: No Symptoms Cardiovascular: Reports: No Symptoms Endocrine: Reports: No Symptoms GI/Abdominal: Reports: Abdominal Pain. Denies: Anorexia, Constipation, Decreased Appetite, Distension, Nausea, Vomiting : Reports: No Symptoms, Irregular Menses. Denies: Discharge, Dysuria, Flank Pain, Frequency, Pain, Urgency Musculoskeletal: Reports: No Symptoms Skin: Reports: No Symptoms Neurological: Reports: No Symptoms Psychiatric: Reports: No Symptoms Hematologic/Lymphatic: Reports: No Symptoms Immunologic: Reports: No Symptoms ED EXAM, GI/ABD - Physical Exam Exam: See Below Exam Limited By: No Limitations General Appearance: Alert, WD/WN, No Apparent Distress, Other (Intermittent mild discomfort noted) Eyes: Bilateral: Normal Appearance Ears: Normal External Exam, Normal Canal, Hearing Grossly Normal, Normal TMs Nose: Normal Inspection, Normal Mucosa, No Blood Throat/Mouth: Normal Inspection, Normal Lips, Normal Teeth, Normal Gums, Normal Oropharynx, Normal Voice, No Airway Compromise Head: Atraumatic, Normocephalic Neck: Normal Inspection, Supple, Non-Tender, Full Range of Motion Respiratory/Chest: No Respiratory Distress, Lungs Clear, Normal Breath Sounds, No Accessory Muscle Use, Chest Non-Tender Cardiovascular: Normal Peripheral Pulses, Regular Rate, Rhythm, No Edema, No Gallop, No JVD, No Murmur, No Rub GI/Abdominal Exam: Normal Bowel Sounds, Soft, No Organomegaly, No Distention, No Abnormal Bruit. No: Non-Tender, Guarding, Rigid, Rebound, Tender (Mild tenderness to palpation left lower quadrant negative McBurney's negative Delcid's negative iliopsoas negative obturator negative pelvic rock negative heel slap no peritoneal signs) Back Exam: Normal Inspection, Full Range of Motion Extremities: Normal Inspection, Normal Range of Motion, Non-Tender, No Pedal Edema, Normal Capillary Refill Neurological: Alert, Oriented, CN II-XII Intact, Normal Cognition, No Motor/Sensory Deficits Psychiatric: Normal Affect Skin Exam: Warm, Dry, Intact, Normal Color, No Rash Lymphatic: No Adenopathy Course - Vital Signs Text/Narrative:: CBC BMP CRP UA urine Toradol 30 mg IV with 4 Zofran Patient was rechecked multiple times states that each time the pain level had gotten better she was a 8 and at time of disposition she was a 6 and states that she has no more abdominal pain this is her chronic daily pain that she functions with from her fibromyalgia. She is okay with disposition course of treatment and follow-up with her primary care provider in the next 24 hours Noted lysed blood trace leukocytes Secondary to lab work being within normal limit except for some hyperglycemia CBC is within normal limits BUN and creatinine was within normal limits CRP within normal limits and negative hCG I do not believe that she needs CT scan at this time patient and the mother also agree they are okay with follow-up as outpatient Last Recorded V/S: Last Vital Signs Temp 36.3 C 08/07/21 22:32 Pulse 121 H 08/07/21 22:32 Resp 18 08/07/21 22:32 BP 126/85 08/07/21 22:32 Pulse Ox 98 08/07/21 22:32 - Orders/Labs/Meds Labs: Laboratory Tests 08/07/21 08/07/21 08/07/21 Range/Units 22:01 22:01 23:00 WBC 10.2 H (4.0-10.0) x10^3/uL RBC 4.53 (4.00-5.50) x10^6/uL Hgb 14.1 (12.0-16.0) g/dL Hct 40.4 (33.0-47.0) % MCV 89.2 (78.0-93.0) fL MCH 31.1 (26.0-32.0) pg MCHC 34.9 (32.0-36.0) g/dL RDW Coeff of Arslan 11.9 (10.0-15.0) % Plt Count 290 (130-400) x10^3/uL Immature Gran % (Auto) 0.20 (0.00-0.43) % Neut % (Auto) 52.4 (50.0-80.0) % Lymph % (Auto) 34.8 (25.0-50.0) % [place] % (Auto) 5.9 (2.0-11.0) % Eos % (Auto) 6.2 H (0.0-4.0) % Baso % (Auto) 0.5 (0.2-1.2) % Neut # (Auto) 5.4 (1.8-7.7) x10^3/uL Lymph # (Auto) 3.6 (1.0-4.8) x10^3/uL [place] # (Auto) 0.6 (0.0-0.8) x10^3/uL Eos # (Auto) 0.6 H (0.0-0.5) x10^3/uL Baso # (Auto) 0.1 (0.0-0.2) x10^3/uL Immature Gran # (Auto) 0.02 (0.00-0.07) x10^3/uL Sodium 142 (136-145) mmol/L Potassium 3.5 (3.5-5.1) mmol/L Chloride 106 (98-107) mmol/L Carbon Dioxide 21 (21-32) mmol/L Anion Gap 18.5 H (5-15) mmol/L BUN 6 L (7-18) mg/dL Creatinine 0.9 (0.55-1.02) mg/dL Est Cr Clr Drug Dosing TNP Estimated GFR (MDRD) > 60 Glucose 148 H (70-99) mg/dL Calcium 9.0 (8.5-10.1) mg/dL C-Reactive Protein < 0.2 (<=0.9) mg/dL Urine Color Yellow (YELLOW) Urine Appearance Slightly cloudy H (CLEAR) Urine pH 5.5 (5.0-8.0) Ur Specific [place] 1.025 Urine Protein Negative (NEGATIVE) mg/dL Urine Glucose (UA) Negative (NEGATIVE) mg/dL Urine Ketones 40 H (NEGATIVE) mg/dL Urine Occult Blood Trace-lysed H (NEGATIVE) Urine Nitrite Negative (NEGATIVE) Urine Bilirubin Negative (NEGATIVE) Urine Urobilinogen 0.2 (0.2) EU/dL Ur Leukocyte Esterase Small H (NEGATIVE) U Hyaline Cast (Auto) Rare Urine RBC 0-5 (NOT SEEN) /HPF Urine WBC 5-10 H (NOT SEEN) /HPF Ur Squamous Epith Cells Many H (NOT SEEN) /HPF Urine Bacteria Few H (NOT SEEN) /HPF Urine Mucus Rare H (NOT SEEN) /LPF Ur Yeast w Hyphae Few (NONE - FEW) /HPF Urine HCG, Qual (NEGATIVE) 08/07/21 Range/Units 23:00 WBC (4.0-10.0) x10^3/uL RBC (4.00-5.50) x10^6/uL Hgb (12.0-16.0) g/dL Hct (33.0-47.0) % MCV (78.0-93.0) fL MCH (26.0-32.0) pg MCHC (32.0-36.0) g/dL RDW Coeff of Arslan (10.0-15.0) % Plt Count (130-400) x10^3/uL Immature Gran % (Auto) (0.00-0.43) % Neut % (Auto) (50.0-80.0) % Lymph % (Auto) (25.0-50.0) % [place] % (Auto) (2.0-11.0) % Eos % (Auto) (0.0-4.0) % Baso % (Auto) (0.2-1.2) % Neut # (Auto) (1.8-7.7) x10^3/uL Lymph # (Auto) (1.0-4.8) x10^3/uL [place] # (Auto) (0.0-0.8) x10^3/uL Eos # (Auto) (0.0-0.5) x10^3/uL Baso # (Auto) (0.0-0.2) x10^3/uL Immature Gran # (Auto) (0.00-0.07) x10^3/uL Sodium (136-145) mmol/L Potassium (3.5-5.1) mmol/L Chloride (98-107) mmol/L Carbon Dioxide (21-32) mmol/L Anion Gap (5-15) mmol/L BUN (7-18) mg/dL Creatinine (0.55-1.02) mg/dL Est Cr Clr Drug Dosing Estimated GFR (MDRD) Glucose (70-99) mg/dL Calcium (8.5-10.1) mg/dL C-Reactive Protein (<=0.9) mg/dL Urine Color (YELLOW) Urine Appearance (CLEAR) Urine pH (5.0-8.0) Ur Specific [place] Urine Protein (NEGATIVE) mg/dL Urine Glucose (UA) (NEGATIVE) mg/dL Urine Ketones (NEGATIVE) mg/dL Urine Occult Blood (NEGATIVE) Urine Nitrite (NEGATIVE) Urine Bilirubin (NEGATIVE) Urine Urobilinogen (0.2) EU/dL Ur Leukocyte Esterase (NEGATIVE) U Hyaline Cast (Auto) Urine RBC (NOT SEEN) /HPF Urine WBC (NOT SEEN) /HPF Ur Squamous Epith Cells (NOT SEEN) /HPF Urine Bacteria (NOT SEEN) /HPF Urine Mucus (NOT SEEN) /LPF Ur Yeast w Hyphae (NONE - FEW) /HPF Urine HCG, Qual Negative (NEGATIVE) Meds: Medications Discontinued Medications Generic Name Dose Route Start Last Admin Trade Name Freq PRN Reason Stop Dose Admin Ketorolac Tromethamine 30 mg 08/07/21 21:55 08/07/21 21:55 Ketorolac 30 Mg/Ml Sdv IVPUSH 08/07/21 21:56 30 mg ONETIME ONE Administration Ondansetron HCl 4 mg 08/07/21 21:55 08/07/21 21:59 Ondansetron 4 Mg/2 Ml Sdv IVPUSH 08/07/21 21:56 4 mg ONETIME ONE Administration Departure - Departure Time of Disposition: 23:30 Disposition: Home, Self-Care 01 Condition: Good Clinical Impression: Abdominal pain - Discharge Information *PRESCRIPTION DRUG MONITORING PROGRAM REVIEWED*: No *COPY OF PRESCRIPTION DRUG MONITORING REPORT IN PATIENT JAE: No Instructions: Abdominal Pain, Adult, [id number] Referrals: PCP,Not In Area [Primary Care Provider] - Forms: ED Department Discharge Additional Instructions: Follow-up with primary care provider in the next 12 to 24 hours You may take naproxen [id number] 1 tablet every 12 hours as needed for the next 2 to 3 days Keep your outpatient appointment with [facility] as scheduled Return to the emergency room if anything changes or gets worse Sepsis Event Note (ED) - Focused Exam Vital Signs: Vital Signs Temp Pulse Resp BP Pulse Ox 08/07/21 22:32 36.3 C 121 H 18 126/85 98 - Problem List & Annotations (1) Abdominal pain SNOMED Code(s): 01646987 Code(s): R10.9 - UNSPECIFIED ABDOMINAL PAIN Status: Acute Current Visit: Yes
[2021-08-07 22:26] LABS: CHLORIDE,CL 106 mmol/L (98-107); SODIUM,NA 142 mmol/L (136-145)
[2021-08-07 22:27] LABS: ANION GAP 18.5 mmol/L (5-15)
== END 2021-08-07 23:45 | disposition home or self-care (01) ==
LOC: VM.ED 21:41
DX: R10.32 Left lower quadrant pain (principal); J45.909 Unspecified asthma, uncomplicated; E03.9 Hypothyroidism, unspecified; Z91.018 Allergy to other foods; Z79.82 Long term (current) use of aspirin; Z79.899 Other long term (current) drug therapy
CPT/HCPCS: 80048; 81001; 81025; 85025; 86140; 96374; 96375; 99284; 99284-25; J1885; J2405

== ENCOUNTER 2023-07-02 20:30 | Emergency (ER) | payer BC, MEDICAID ==
[2023-07-02] MEDS ORDERED: fentaNYL 50 MCG/ML SDV IVPUSH ONE ×2 (20:53→21:38)
[2023-07-02] MEDS ORDERED: Ondansetron 4 MG/2 ML SDV IVPUSH ONE (20:53)
[2023-07-02] MEDS ORDERED: Sodium Chloride 0.9% 1,000 ML IV ONE ×2 (20:53→22:20)
[2023-07-02] MEDS ORDERED: Naloxone 0.4 MG/ML SDV IVPUSH PRN (20:53)
[2023-07-02 21:10] LABS: BASOPHILS ABSOLUTE AUTO 0.1 x10^3/uL (0.0-0.2); BASOPHILS PERCENT AUTO 0.5 % (0.2-1.2); EOSINOPHILS ABSOLUTE AUTO 0.7 x10^3/uL (0.0-0.5); HEMATOCRIT 42.2 % (33.0-47.0); HEMOGLOBIN 14.5 g/dL (12.0-16.0); IMMATURE GRAN ABSOLUTE AUTO 0.03 x10^3/uL (0.00-0.07); LYMPHOCYTES ABSOLUTE AUTO 2.9 x10^3/uL (1.0-4.8); LYMPHOCYTES PERCENT AUTO 21.9 % (25.0-50.0); MEAN CORPUSCULAR HEMOGLOBIN 30.5 pg (26.0-32.0); MEAN CORPUSCULAR HGB CONC 34.4 g/dL (32.0-36.0); MEAN CORPUSCULAR VOLUME 88.8 fL (78.0-93.0); MONOCYTES ABSOLUTE AUTO 0.9 x10^3/uL (0.0-0.8); MONOCYTES PERCENT AUTO 6.7 % (2.0-11.0); NEUTROPHILS ABSOLUTE AUTO 8.7 x10^3/uL (1.8-7.7); NEUTROPHILS PERCENT AUTO 65.7 % (50.0-80.0); PLATELET COUNT,PLT 277 x10^3/uL (130-400); RED BLOOD CELL COUNT 4.75 x10^6/uL (4.00-5.50); WHITE BLOOD CELL COUNT,WBC 13.3 x10^3/uL (4.0-10.0)
[2023-07-02 21:11] LABS: APPEARANCE,URINE CLEAR (CLEAR); BILIRUBIN,URINE NEGATIVE (NEGATIVE); COLOR,URINE YELLOW (YELLOW); GLUCOSE,URINE NEGATIVE (NEGATIVE); KETONES,URINE TRACE mg/dL (NEGATIVE); LEUKOCYTE ESTERASE,URINE SMALL (NEGATIVE); NITRITE,URINE NEGATIVE (NEGATIVE); OCCULT BLOOD,URINE TRACE-INTACT (NEGATIVE); PH,URINE 5.5 (5.0-8.0); PROTEIN,URINE 30 mg/dL (NEGATIVE); UROBILINOGEN,URINE 0.2 EU/dL (0.2)
[2023-07-02 21:31] LABS: BACTERIA,URINE FEW /HPF (NOT SEEN); MUCUS,URINE MANY /LPF (NOT SEEN); RBC,URINE 0-5 /HPF (NOT SEEN); SQUAMOUS EPITHELIAL CELLS,UR MANY /HPF (NOT SEEN); WBC,URINE 0-5 /HPF (NOT SEEN)
[2023-07-02 21:33] LABS: A/G RATIO 0.85; ALANINE AMINOTRANSFERASE,ALT 20 U/L (14-59); ALBUMIN 3.5 g/dL (3.4-5.0); ALKALINE PHOSPHATASE 122 U/L (46-116); ASPARTATE AMNIOTRANSFERASE,AST 14 U/L (15-37); BILIRUBIN TOTAL 0.3 mg/dL (0.2-1.0); BLOOD UREA NITROGEN,BUN 7 mg/dL (7-18); C-REACTIVE PROTEIN 0.68 mg/dL (<=0.30); CALCIUM 9.1 mg/dL (8.5-10.1); CARBON DIOXIDE,CO2 22 mmol/L (21-32); CHLORIDE,CL 104 mmol/L (98-107); GLUCOSE RANDOM 146 mg/dL (70-99); LIPASE 44 U/L (19-71); PROTEIN TOTAL,TP 7.6 g/dL (6.4-8.2); SODIUM,NA 142 mmol/L (136-145)
[2023-07-02 21:34] LABS: ANION GAP 18.6 mmol/L (5-15); ESTIMATED GFR 81 mL/min (>=60); POTASSIUM,K 2.6 mmol/L (3.5-5.1)
[2023-07-02] MEDS ORDERED: Potassium Chloride Riders 20 MEQ in Premix Bag 1 BAG IV ONE (21:44)
[2023-07-02] MEDS ORDERED: Iopamidol 612 MG/ML 100 ML Bottle IVPUSH ONE (21:58)
[2023-07-02] MEDS ORDERED: HYDROmorphone 0.5 MG/0.5 ML Syringe IVPUSH ONE (22:35)
[2023-07-02] MEDS ORDERED: Take Home: Acetaminophen/HYDROcodone 325-5 MG, 5 Tab Pack PO ONE (23:20)
[2023-07-02] MEDS ORDERED: Tamsulosin 0.4 MG Cap.ER PO ONE (23:21)
[2023-07-02] MEDS ORDERED: Take Home: Ondansetron 4 MG Tab.DIS, 5 Tab Pack PO ONE (23:21)
== END 2023-07-02 23:50 | disposition home or self-care (01) ==
LOC: VM.ED 20:30
DX: N13.2 Hydronephrosis with renal and ureteral calculous obstruction (principal); J45.909 Unspecified asthma, uncomplicated; E03.9 Hypothyroidism, unspecified; Z91.018 Allergy to other foods; Z79.899 Other long term (current) drug therapy
CPT/HCPCS: 74177; 80053; 81001; 81025; 83690; 85025; 86140; 87086; 96361; 96365; 96375; 96376; 99284; 99284-25; A9270-GY; J1170; J2405; J3010; J3480; J7030; Q0162; Q9967

== ENCOUNTER 2024-04-23 18:42 | Emergency (ER) | payer BC ==
[2024-04-23] MEDS: Fluconazole 100 MG Tab PO ONE (19:28)
== END 2024-04-23 19:36 | disposition home or self-care (01) ==
LOC: VM.ED 18:42
DX: L30.9 Dermatitis, unspecified (principal); L29.9 Pruritus, unspecified; J45.909 Unspecified asthma, uncomplicated; E03.9 Hypothyroidism, unspecified; Z88.8 Allergy status to other drugs, medicaments and biological substances; Z91.048 Other nonmedicinal substance allergy status; Z91.018 Allergy to other foods; Z79.82 Long term (current) use of aspirin; Z79.899 Other long term (current) drug therapy; Z79.51 Long term (current) use of inhaled steroids; Z79.890 Hormone replacement therapy
CPT/HCPCS: 99282; A9270; 99283

== ENCOUNTER 2024-09-16 21:14 | Emergency (ER) | payer BC ==
[2024-09-16] MEDS ORDERED: Sodium Chloride 0.9% 10 ML Syringe FLUSH PRN (21:21)
[2024-09-16] MEDS: Ondansetron 4 MG/2 ML SDV IVPUSH ONE (21:46)
[2024-09-16] MEDS: Ketorolac 15 MG/ML SDV IVPUSH ONE (21:48)
[2024-09-16 21:52] LABS: BASOPHILS PERCENT AUTO 0.4 % (0.2-1.2); EOSINOPHILS ABSOLUTE AUTO 0.8 x10^3/uL (0.0-0.5); HEMATOCRIT 40.3 % (33.0-47.0); HEMOGLOBIN 14.2 g/dL (12.0-16.0); IMMATURE GRAN ABSOLUTE AUTO 0.01 x10^3/uL (0.00-0.07); LYMPHOCYTES ABSOLUTE AUTO 3.5 x10^3/uL (1.0-4.8); LYMPHOCYTES PERCENT AUTO 31.3 % (25.0-50.0); MEAN CORPUSCULAR HEMOGLOBIN 31.8 pg (26.0-32.0); MEAN CORPUSCULAR HGB CONC 35.2 g/dL (32.0-36.0); MEAN CORPUSCULAR VOLUME 90.4 fL (78.0-93.0); MONOCYTES ABSOLUTE AUTO 0.7 x10^3/uL (0.0-0.8); MONOCYTES PERCENT AUTO 6.7 % (2.0-11.0); NEUTROPHILS PERCENT AUTO 54.5 % (50.0-80.0); PLATELET COUNT,PLT 263 x10^3/uL (130-400); RED BLOOD CELL COUNT 4.46 x10^6/uL (4.00-5.50)
[2024-09-16 21:54] LABS: APPEARANCE,URINE SLIGHTLY CLOUDY (CLEAR); BILIRUBIN,URINE NEGATIVE (NEGATIVE); COLOR,URINE YELLOW (YELLOW); GLUCOSE,URINE NEGATIVE (NEGATIVE); KETONES,URINE NEGATIVE (NEGATIVE); LEUKOCYTE ESTERASE,URINE TRACE (NEGATIVE); NITRITE,URINE NEGATIVE (NEGATIVE); OCCULT BLOOD,URINE TRACE-INTACT (NEGATIVE); PROTEIN,URINE 30 mg/dL (NEGATIVE); UROBILINOGEN,URINE 0.2 EU/dL (0.2)
[2024-09-16 22:02] LABS: BACTERIA,URINE RARE /HPF (NOT SEEN); MUCUS,URINE OCCASIONAL /LPF (NOT SEEN); RBC,URINE 0-5 /HPF (NOT SEEN); SQUAMOUS EPITHELIAL CELLS,UR FEW /HPF (NOT SEEN); WBC,URINE 0-5 /HPF (NOT SEEN)
[2024-09-16 22:13] LABS: A/G RATIO 0.89; ALBUMIN 3.4 g/dL (3.4-5.0); ANION GAP 16.3 mmol/L (5-15); BILIRUBIN TOTAL 0.3 mg/dL (0.2-1.0); C-REACTIVE PROTEIN 1.13 mg/dL (<=0.50); CREATININE 1.2 mg/dL (0.55-1.02); EST CRCL DRUG DOSING (CG) 67.67 mL/min; POTASSIUM,K 3.3 mmol/L (3.5-5.1); PROTEIN TOTAL,TP 7.2 g/dL (6.4-8.2)
[2024-09-16] MEDS: Lactated Ringers 1,000 ML IV ONE (22:20)
[2024-09-16] MEDS: Tamsulosin 0.4 MG Cap.ER PO ONE (23:34)
[2024-09-16] MEDS: Take Home: Acetaminophen/HYDROcodone 325-5 MG, 5 Tab Pack PO ONE (23:34)
== END 2024-09-16 23:42 | disposition home or self-care (01) ==
LOC: VM.ED 21:14
DX: N13.2 Hydronephrosis with renal and ureteral calculous obstruction (principal); E03.9 Hypothyroidism, unspecified; Z79.890 Hormone replacement therapy; Z79.899 Other long term (current) drug therapy; Z91.018 Allergy to other foods; Z88.8 Allergy status to other drugs, medicaments and biological substances
CPT/HCPCS: 74176; 80053; 81001; 81025; 85025; 86140; 87086; 96361; 96374; 96375; 99284-25; A9270-GY; J1885; J2405; J7120

== ENCOUNTER 2025-05-09 19:56 | Emergency (ER) | payer BC | END 2025-05-09 20:42 | disposition home or self-care (01) | LOC: VM.ED 19:56 | DX: R68.84 Jaw pain (principal); E03.9 Hypothyroidism, unspecified; J45.909 Unspecified asthma, uncomplicated; Z91.048 Other nonmedicinal substance allergy status; Z91.018 Allergy to other foods; Z88.8 Allergy status to other drugs, medicaments and biological substances; Z79.82 Long term (current) use of aspirin; Z79.899 Other long term (current) drug therapy; Z79.890 Hormone replacement therapy | CPT/HCPCS: 99283 ==